=== PATIENT | male | born 2000 | race Caucasian/White ===

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

== ENCOUNTER 2020-12-31 20:13 | Emergency (ER) | payer OTHER ==
[~2020-12-31 20:13] MED LIST: IBUPROFEN800 MG PO; LODINE CAP 300300 MG PO
[2020-12-31] MEDS ORDERED: IBUPROFEN600 MG PO (20:54)
== END 2020-12-31 21:05 | disposition home or self-care (01) ==
LOC: ER1 20:13
DX: S93.401A Sprain of unspecified ligament of right ankle, initial encounter (principal); X50.1XXA Overexertion from prolonged static or awkward postures, initial encounter; Y92.410 Unspecified street and highway as the place of occurrence of the external cause
CPT/HCPCS: 73610; 73630; 99283

== ENCOUNTER 2021-02-22 23:06 | Emergency (ER) | payer OTHER ==
[~2021-02-22 23:06] MED LIST changes: +IBUPROFEN600 MG PO
[2021-02-22] MEDS ORDERED: LODINE CAP 300300 MG PO (23:36)
[2021-02-22] MEDS ORDERED: PENVEE K 500 M500 MG PO (23:36)
== END 2021-02-22 23:50 | disposition home or self-care (01) ==
LOC: ER1 23:06
DX: K04.7 Periapical abscess without sinus (principal)
CPT/HCPCS: 99282

== ENCOUNTER 2021-04-14 16:29 | Emergency (ER) | payer OTHER ==
[~2021-04-14 16:29] MED LIST changes: +PENVEE K 500 M500 MG PO
[2021-04-14] MEDS ORDERED: DELSYM30 MG/5 ML PO (18:35)
== END 2021-04-14 18:39 | disposition home or self-care (01) ==
LOC: ER1 16:29
DX: U07.1 COVID-19 (principal); F17.290 Nicotine dependence, other tobacco product, uncomplicated
CPT/HCPCS: 99283; U0002

== ENCOUNTER 2022-04-23 17:56 | Emergency (ER) | payer OTHER ==
[~2022-04-23 17:56] MED LIST changes: +DELSYM30 MG/5 ML PO
== END 2022-04-24 00:30 | disposition home or self-care (01) ==
LOC: ER1 17:56
DX: U07.1 COVID-19 (principal); F17.220 Nicotine dependence, chewing tobacco, uncomplicated; F17.290 Nicotine dependence, other tobacco product, uncomplicated
CPT/HCPCS: 87081; 87880; 99284; U0002